=== PATIENT | male | born 1990 | race African-American/Black ===

== ENCOUNTER 2019-07-19 00:27 | Inpatient (IN) | payer OTHER ==
[~2019-07-19] VITALS: Ht 188 cm; Wt 77.3 kg
[2019-07-19 01:03] LABS: BASOPHILS % (AUTO) 0.6 % (0.0-2.0); EOSINOPHILS % (AUTO) 1.1 % (1.0-6.0); HEMATOCRIT 43.3 % (41-53); LYMPHOCYTES # (AUTO) 1.8 K/uL (1.0-4.8); LYMPHOCYTES % (AUTO) 25.1 % (22.0-44.0); MEAN CORPUSCULAR HEMOGLOBIN 26.3 pg (26.0-34.0); MEAN CORPUSCULAR HGB CONC 32.3 G/dL (31.0-37.0); MEAN CORPUSCULAR VOLUME 81 fL (80-100); MONOCYTES # (AUTO) 0.6 K/uL (0.1-1.0); MONOCYTES % (AUTO) 8.4 % (2.0-9.0); NEUTROPHILS # (AUTO) 4.6 K/uL (1.8-7.7); NEUTROPHILS % (AUTO) 64.8 % (40.0-70.0); PLATELET COUNT (AUTO) 332 K/uL (150-450); RED BLOOD CELL COUNT(AUTO) 5.32 MIL/uL (4.50-5.90); RED CELL DISTRIBUTION WIDTH 13.6 % (11.5-14.5)
[2019-07-19 01:10] LABS: ANION GAP 8 mmol/L (8-16); CALCIUM, TOTAL 9.9 mg/dL (8.8-10.5); CARBON DIOXIDE 29 mmol/L (22-29); CHLORIDE 99 mmol/L (98-107); CREATININE 1.27 mg/dL (0.60-1.30); GLOMERULAR FILTR. RATE CALC > 60 mL/min (>60); GLUCOSE,RANDOM 105 mg/dL (70-110); POTASSIUM 3.9 mmol/L (3.5-5.1); SODIUM SERUM 136 mmol/L (136-145); UREA NITROGEN, BLOOD 21 mg/dL (7-18)
[2019-07-19 01:17] LABS: ALANINE AMINOTRANSFERASE 27 U/L (12-78); ALBUMIN 4.5 g/dL (3.4-5.0); ALKALINE PHOSPHATASE 86 U/L (46-116); ASPARTATE AMINOTRANSFERASE 17 U/L (15-37); BILIRUBIN,TOTAL 0.4 mg/dL (0.1-1.0); TOTAL PROTEIN, SERUM 8.7 g/dL (6.4-8.2)
[2019-07-19 01:24] LABS: AMPHET/METH SCREEN,URINE NEGATIVE (NEGATIVE); BARBITURATE SCREEN, URINE NEGATIVE (NEGATIVE); BENZODIAZEPINES SCREEN,URINE NEGATIVE (NEGATIVE); CANNABINOID SCREEN,URINE NEGATIVE (NEGATIVE); COCAINE SCREEN,URINE NEGATIVE (NEGATIVE); METHADONE SCREEN, URINE NEGATIVE (NEGATIVE); OPIATE SCREEN,URINE NEGATIVE (NEGATIVE); PHENCYCLIDINE SCREEN,URINE NEGATIVE (NEGATIVE)
[2019-07-19] MEDS ORDERED: 0.9% SODIUM CHLORIDE 10 ML SYRINGE IVP PRN ×2 (02:00)
[2019-07-19] MEDS ORDERED: ONDANSETRON HCL 4 MG/2 ML VIAL IVP PRN ×2 (02:00)
[2019-07-19] MEDS ORDERED: ACETAMINOPHEN 325 MG TABLET PO PRN (02:00)
[2019-07-19] MEDS ORDERED: LORazepam 1 MG TABLET PO ONE (02:30)
[2019-07-19 02:38] VITALS: BP 132/71
[2019-07-19] MEDS: ACETAMINOPHEN 325 MG TABLET PO PRN ×3 (03:10→20:58)
[2019-07-19] MEDS ORDERED: INFLUENZA VIRUS VACCINE QVS 2019-20 (3YR+)/PF 60 MCG/0.5 ML SYRINGE IM ONE (03:15)
[2019-07-19 05:33] VITALS: BP 125/63
[2019-07-19 07:58] VITALS: BP 110/58
[2019-07-19 15:05] VITALS: BP 123/74
[2019-07-19 20:10] VITALS: BP 115/82
[2019-07-19] MEDS: MIRTAZAPINE 30 MG TABLET PO SCH (20:19)
[2019-07-19] MEDS: SERTRALINE HCL 50 MG TABLET PO SCH (20:19)
[2019-07-19] MEDS: HydrOXYzine PAMOATE 25 MG CAPSULE PO PRN (20:57)
[2019-07-20 04:40] VITALS: BP 122/81
[2019-07-20 08:14] VITALS: BP 107/77
[2019-07-20] MEDS: HydrOXYzine PAMOATE 25 MG CAPSULE PO PRN ×2 (12:35→20:45)
[2019-07-20 13:37] VITALS: BP 112/82
[2019-07-20 17:51] VITALS: BP 144/58
[2019-07-20] MEDS: ACETAMINOPHEN 325 MG TABLET PO PRN (20:45)
[2019-07-20] MEDS: SERTRALINE HCL 50 MG TABLET PO SCH (20:45)
[2019-07-20] MEDS: MIRTAZAPINE 30 MG TABLET PO SCH (20:45)
[2019-07-20 20:55] VITALS: BP 121/60
[2019-07-21 04:59] VITALS: BP 122/85
[2019-07-21 07:41] VITALS: BP 118/76
[2019-07-21] MEDS: HydrOXYzine PAMOATE 25 MG CAPSULE PO PRN (11:44)
[2019-07-21 15:24] VITALS: BP 127/70
[2019-07-21 19:44] VITALS: BP 119/68
[2019-07-21] MEDS: ACETAMINOPHEN 325 MG TABLET PO PRN (19:49)
[2019-07-21] MEDS: MIRTAZAPINE 30 MG TABLET PO SCH (20:07)
[2019-07-21] MEDS: SERTRALINE HCL 50 MG TABLET PO SCH (20:07)
[2019-07-22 04:03] VITALS: BP 118/83
[2019-07-22] MEDS: HydrOXYzine PAMOATE 25 MG CAPSULE PO PRN ×2 (08:21→17:45)
[2019-07-22 08:24] VITALS: BP 118/58
[2019-07-22] MEDS: ACETAMINOPHEN 325 MG TABLET PO PRN (10:54)
[2019-07-22] MEDS: MIRTAZAPINE 30 MG TABLET PO SCH (20:36)
[2019-07-22] MEDS: SERTRALINE HCL 50 MG TABLET PO SCH (20:36)
[2019-07-22 21:05] VITALS: BP 114/68
[2019-07-23 05:05] VITALS: BP 134/62
[2019-07-23] MEDS: ACETAMINOPHEN 325 MG TABLET PO PRN (05:10)
[2019-07-23] MEDS: HydrOXYzine PAMOATE 25 MG CAPSULE PO PRN ×2 (09:26→14:34)
[2019-07-23] MEDS: SERTRALINE HCL 50 MG TABLET PO SCH (20:32)
[2019-07-23] MEDS: MIRTAZAPINE 30 MG TABLET PO SCH (20:32)
[2019-07-23 20:40] VITALS: BP 134/68
[2019-07-24 04:57] VITALS: BP 147/81
[2019-07-24 08:18] VITALS: BP 116/74
[2019-07-24] MEDS: HydrOXYzine PAMOATE 25 MG CAPSULE PO PRN ×2 (08:20→20:36)
[2019-07-24 16:04] VITALS: BP 129/62
[2019-07-24 19:24] VITALS: BP 118/73
[2019-07-24] MEDS: SERTRALINE HCL 50 MG TABLET PO SCH (20:36)
[2019-07-24] MEDS: MIRTAZAPINE 30 MG TABLET PO SCH (20:36)
[2019-07-25 04:42] VITALS: BP 151/69
[2019-07-25 07:39] VITALS: BP 114/62
[2019-07-25] MEDS: HydrOXYzine PAMOATE 25 MG CAPSULE PO PRN (09:07)
[2019-07-25 16:05] VITALS: BP 111/69
[2019-07-25 20:30] VITALS: BP 106/65
[2019-07-25] MEDS: SERTRALINE HCL 50 MG TABLET PO SCH (20:46)
[2019-07-25] MEDS: MIRTAZAPINE 30 MG TABLET PO SCH (20:46)
[2019-07-26 05:53] VITALS: BP 143/73
[2019-07-26 07:51] VITALS: BP 123/59
[2019-07-26] MEDS: HydrOXYzine PAMOATE 25 MG CAPSULE PO PRN (08:42)
[2019-07-26] MEDS ORDERED: MIRT30 PO ×3 (13:42→13:46)
[2019-07-26] MEDS ORDERED: SERT20OR6 PO ×2 (13:45→13:47)
[2019-07-26 16:00] VITALS: BP 113/72
== END 2019-07-26 17:33 | DRG 885 ==
LOC: EMS 00:28 → 6S 01:00
PROVIDERS: ADMIT Hospitalist; ATTEND Hospitalist
DX: F33.2 Major depressive disorder, recurrent severe without psychotic features (principal); R45.851 Suicidal ideations; R44.3 Hallucinations, unspecified; F43.12 Post-traumatic stress disorder, chronic; F43.10 Post-traumatic stress disorder, unspecified; F41.9 Anxiety disorder, unspecified; Z23 Encounter for immunization
CPT/HCPCS: 90686; 97116; 97161; 97530; G0480